=== PATIENT | male | born 1970 | race Caucasian/White ===

== ENCOUNTER 2016-11-22 10:10 | Observation (INO) | payer BC ==
[2016-11-22] MEDS ORDERED: Sodium Chloride 0.9% 5 ML Syringe FLUSH PRN (10:30)
[2016-11-22] MEDS ORDERED: Atropine 0.1 MG/ML 10 ML Syringe IVPUSH PRN (10:31)
[2016-11-22] MEDS ORDERED: Lidocaine 2% 100 MG/5 ML Syringe IVPUSH PRN (10:31)
[2016-11-22] MEDS ORDERED: EPINEPHrine 1:10,000 1 MG/10 ML Syringe IVPUSH PRN (10:31)
[2016-11-22] MEDS ORDERED: Nitroglycerin 0.4 MG Tab.SL SL PRN (10:31)
[2016-11-23 10:07] VITALS: BP 148/91
--- NOTE | 2016-11-26 08:25 | DISCH ---
FINAL DIAGNOSES: 1. Atypical chest pain, uncertain if angina. 2. Hypercholesterolemia. 3. Obesity with modifiable risk factors. BRIEF HISTORY: This patient who is 46 years old saw Shanna Balbuena at the [facility], was admitted for chest pain. He described it as will come up about 2 in the morning, he was sleeping, felt a low dull anterior wall type of chest pain, slightly diaphoretic, said it radiated to his jaw, thought he had a toothache; however, he sort of walked it off, went back to bed, did okay, and then he started having it again the next morning. He did report to the clinic. Clinic EKG did show a slight Q-wave in inferior leads, however, subsequent EKG with active pain was normal sinus rhythm, so he was admitted basically for rule out myocardial infarction. The hospital course went well. He did have one or two slight low dull types of chest pain. One time, it was in the middle of the night. He did not alert nurses, he was on telemetry, had no ectopy on his cardiac technician all night. I did perform a provocative stress test since he had negative cardiac biomarkers in the hospital that did not provoke any sort of diaphoresis, shortness of breath, ectopy, or even chest pain. However, he did have another spontaneous episode around 1 o'clock the day prior to admission that was even at rest. Again, no ectopy on telemetry. EKG during that active chest pain showed normal sinus rhythm. No Q-wave noted in any of the leads or ST morphology. Cardiac biomarkers, troponins were negative. The patient did have a slightly elevated blood pressure of 145/91 on discharge. However, other subsequent ones were a mixed picture, some were normal, some were slightly elevated. A decision was made to treat him with a low-dose beta ilir on discharge. He does have an elevated cholesterol, a low PZI-up-jlwmacqmfgh ratio necessitating treatment. He would like to start on Crestor, a prescription has been given, he also will be started on a low-dose aspirin. His family history consists of brother Who is 5 years older with ongoing cardiac complications of cardiomyopathy and low ejection fraction currently ongoing care. Also grandfather his grandfather mid 50s myocardial infarction. His modifiable risk factors are that he does have a BMI of 29, he does not exercise; however, he is active as a ramos. He has no family history of hypertension or cardiac history. He does have a high cholesterol level and of course his gender is non-modifiable. All electrolytes were normal. Troponins were normal. He did state he had pleurisy one or two years ago of questionable etiology; however, he said those symptoms were different than these. DISCHARGE PHYSICAL EXAMINATION: VITAL SIGNS: Blood pressure 145/91, temperature 97, heart rate 83, O2 sats 94% to 96% on room air, and respiratory rate 16. LUNGS: Clear to auscultation. CV: Regular rate and rhythm. No S3. He has no edema. The only medication he has when he came in was naproxen. One alarming symptom he has was that his chest pain was relieved yesterday in [facility] with one dose of nitroglycerin. We started him on regular diet, he tolerated it well. He had no nausea or vomiting. Chest x-ray was performed, it was negative. MEDICATION CHANGES/ADJUSTMENTS: 1. Aspirin 81 mg, enteric coated, daily (newly added). 2. Crestor 10 mg p.o. daily (newly added). 3. Metoprolol succinate 12.5 mg p.o. daily (newly added). 4. Ushp-qna-imrkwxk CoQ10 (newly added). 5. The patient can continue on his naproxen p.r.n. 6. Nitroglycerine as directed (newly added) p.r.n. DISPOSITION: The patient will be discharged from the hospital. I feel comfortable discharging him home. I did talk to [facility] Cardiology, Dr. Jesus, and he concurs with treatment plan. However, we will place a consultation in for him to have a nuclear stress test in [place] with a cardiology consult. I believe he is low risk, but it is warranting imaging him. He will follow up with us after his appointments at [facility]. The patient was given education regarding low-cholesterol diet. He is to do no strenuous activity, no lifting more than 25 pounds, or performing any Valsalva maneuvers until he sees Cardiology. He was told to report any types of chest pain worsening. /[id number]/MODL MTDD
== END 2016-11-23 10:35 | disposition home or self-care (01) ==
LOC: KA.MS 10:21
PROVIDERS: ADMIT Physician Assistant Medical; ATTEND Nurse Practitioner Family
DX: R07.89 Other chest pain (principal); E78.00 Pure hypercholesterolemia, unspecified; E66.9 Obesity, unspecified; Z79.82 Long term (current) use of aspirin; Z79.899 Other long term (current) drug therapy
CPT/HCPCS: 36415; 71020; 84484; 86140; 93005; G0378; G0379